=== PATIENT | male | born 1940 | race Caucasian/White ===

== ENCOUNTER 2022-02-26 13:37 | Outpatient (CLI) | payer MEDICARE, BC ==
[~2022-02-26 13:37] MED LIST: Magnevist 469MG/ML 20 ML VIAL ONE
== END 2022-02-26 13:38 | disposition home or self-care (01) ==
LOC: CSHMRI 13:37
PROVIDERS: ATTEND Urology
DX: R97.20 Elevated prostate specific antigen [PSA] (principal)
CPT/HCPCS: 72197; 82565